=== PATIENT | female | born 1970 | race Two or more races ===

== ENCOUNTER 2017-05-25 17:51 | Emergency (ER) | payer SELFPAY ==
[2017-05-25] MEDS: LIDOCAINE 2%/EPI 1:100,000 20 ML VIAL. IJ (19:25)
== END 2017-05-25 20:07 | disposition home or self-care (01) ==
LOC: ER 17:51
DX: S00.85XA Superficial foreign body of other part of head, initial encounter (principal); J32.9 Chronic sinusitis, unspecified; G43.909 Migraine, unspecified, not intractable, without status migrainosus; F17.200 Nicotine dependence, unspecified, uncomplicated; Z88.0 Allergy status to penicillin; W34.010A Accidental discharge of airgun, initial encounter; Y93.89 Activity, other specified; Y92.89 Other specified places as the place of occurrence of the external cause; Y99.8 Other external cause status
CPT/HCPCS: 10120; 70450; 99284-25; J3490